=== PATIENT | male | born 1935 | race African-American/Black ===

== ENCOUNTER 2021-06-09 17:53 | Inpatient (IN) | payer MEDICARE ==
[~2021-06-09] VITALS: Ht 180.3 cm; Wt 95.7 kg
[~2021-06-09 17:53] MED LIST: CLIN-116 MT
[2021-06-09] MEDS ORDERED: SODIUM CHLORIDE 0.9% 1000ML BAG (SEPSIS BOLUS) IV ONE (18:30)
[2021-06-09] MEDS ORDERED: PIPERACILLIN/TAZ 3.375G PREMIX 50 ML IV ONE (18:30)
[2021-06-09] MEDS ORDERED: VANCOMYCIN 1 G PREMIX 200 ML IV ONE (18:30)
[2021-06-09 18:36] LABS: HEMATOCRIT. 25.7 % (42.0-52.0); HEMOGLOBIN. 8.1 g/dL (14.0-18.0); MEAN CORPUSCULAR HEMOGLOBIN 28.9 pg (28.0-32.0); MEAN CORPUSCULAR VOLUME 91.2 fL (80.0-94.0); MEAN PLATELET VOLUME 7.8 fl (7.4-10.4); PLATELET 292 x1000/uL (130-400); RED BLOOD CELL COUNT 2.82 mill/uL (4.7-6.1); RED CELL DISTRIBUTION WIDTH 15.9 % (11.6-14.6)
[2021-06-09 18:38] LABS: CHLORIDE 112 mEq/L (98-107)
[2021-06-09 19:55] LABS: PLATELET ESTIMATE NORMAL
[2021-06-09] MEDS ORDERED: NOREPINEPHRINE 8MG/250ML PMX 250 ML IV ONE (20:15)
[2021-06-09] MEDS ORDERED: DIGOXIN 500MCG/2ML AMP IV SCH (22:00)
[2021-06-09 23:39] LABS: BG BASE EXCESS -6.7 mmol/L (-2.0-2.0); BG CARBOXYHEMOGLOBIN 0.3 % (0.5-1.5); BG DEOXYHEMOGLOBIN 6.2 % (0.0-5.0); BG FRACTION INSPIRED OXYGEN 21; BG HCO3 ACT 17.6 mmol/L (22.0-26.0); BG METHEMOGLOBIN 0.2 % (0.0-1.5); BG OXYGEN SATURATION 93.8 % (92.0-98.5); BG OXYHEMOGLOBIN 93.3 % (94.0-97.0); BG PCO2 30.6 mmHg (35.0-45.0); BG PH 7.377 (7.350-7.450); BG PO2 75.1 mmHg (75.0-100.0); BG SAMPLE SITE RIGHT BRACHIAL; BG TOTAL HEMOGLOBIN 9.2 g/dL (12.0-18.0); BG VENT MODE ROOM AIR
[2021-06-10] MEDS ORDERED: DIGOXIN 500MCG/2ML AMP IV SCH (00:15)
[2021-06-10] MEDS ORDERED: SODIUM BICARBONATE 50 MEQ in DEXTROSE 5% WATER 1,000 ML IV SCH ×2 (01:00→08:00)
[2021-06-10] MEDS: HYDROCORTISONE SOD SUCCINATE 100 MG/2 ML VIAL IV SCH ×3 (01:02→21:17)
[2021-06-10] MEDS: MEROPENEM 500 MG in SODIUM CHLORIDE 0.9% 50 ML IV SCH ×3 (01:04→21:00)
[2021-06-10] MEDS: PANTOPRAZOLE SODIUM 40 MG/VIAL IV SCH ×2 (03:05→09:35)
[2021-06-10] MEDS ORDERED: NOREPINEPHRINE 8MG/250ML PMX 250 ML IV SCH (03:30)
[2021-06-10] MEDS ORDERED: DILTIAZEM HCL 5MG/ML 5ML VIAL IV SCH (05:00)
[2021-06-10] MEDS ORDERED: AMIODARONE HCL 150 MG in DEXT 5% WATER 100 ML IV SCH (05:00)
[2021-06-10] MEDS ORDERED: AMIODARONE HCL 900 MG in DEXT 5% WATER 500 ML IV PRN (05:00)
[2021-06-10] MEDS ORDERED: DOCUSATE SODIUM 100MG CAPSULE PO PRN (11:00)
[2021-06-10] MEDS ORDERED: MAGNESIUM/ALUMINUM HYDROXIDE/SIMETHICONE 30ML UDC PO PRN (11:00)
[2021-06-10] MEDS ORDERED: NA PHOS,M-B/NA PHOS,DI-BA ENEMA 118ML PR PRN (11:00)
[2021-06-10] MEDS ORDERED: ACETAMINOPHEN 650MG SUPP PR PRN (11:00)
[2021-06-10] MEDS ORDERED: DIPHENHYDRAMINE 50MG/ML VIAL IV PRN (11:00)
[2021-06-10] MEDS ORDERED: GUAIFENESIN 200MG/10ML SUGAR FREE UDC PO PRN (11:00)
[2021-06-10] MEDS ORDERED: ONDANSETRON HCL 4MG/2ML INJ IV PRN (11:00)
[2021-06-10] MEDS ORDERED: IPRATROPIUM/ALBUTEROL 0.5-3(2.5)MG/3ML NEB NEB PRN (11:00)
[2021-06-10] MEDS ORDERED: ACETAMINOPHEN 325MG TABLET PO PRN (11:00)
[2021-06-10] MEDS ORDERED: NALOXONE HCL 0.4MG/ML VIAL IV PRN (11:00)
[2021-06-10] MEDS ORDERED: MORPHINE SULFATE 2 MG/ML CPJ (NOT FOR IM USE) IV PRN (11:00)
[2021-06-10 11:16] LABS: HEMATOCRIT. 26.4 % (42.0-52.0); HEMOGLOBIN. 8.6 g/dL (14.0-18.0); MEAN CORPUSCULAR HEMOGLOBIN 28.6 pg (28.0-32.0); MEAN CORPUSCULAR VOLUME 88.4 fL (80.0-94.0); PLATELET 259 x1000/uL (130-400); RED BLOOD CELL COUNT 2.99 mill/uL (4.7-6.1); RED CELL DISTRIBUTION WIDTH 16.2 % (11.6-14.6)
[2021-06-10] MEDS: LORAZEPAM 2MG/ML CPJ IV PRN (11:20)
[2021-06-10] MEDS ORDERED: VANCOMYCIN 1 G PREMIX 200 ML IV NR (11:30)
[2021-06-10 12:13] LABS: CHLORIDE 113 mEq/L (98-107)
[2021-06-10 12:50] LABS: PLATELET ESTIMATE NORMAL
[2021-06-10 13:54] LABS: BG BASE EXCESS -4.5 mmol/L (-2.0-2.0); BG DEOXYHEMOGLOBIN 1.7 % (0.0-5.0); BG FRACTION INSPIRED OXYGEN 24; BG HCO3 ACT 19.5 mmol/L (22.0-26.0); BG METHEMOGLOBIN 0.5 % (0.0-1.5); BG OXYGEN SATURATION 98.3 % (92.0-98.5); BG OXYHEMOGLOBIN 97.8 % (94.0-97.0); BG PCO2 31.5 mmHg (35.0-45.0); BG PH 7.409 (7.350-7.450); BG PO2 133.7 mmHg (75.0-100.0); BG SAMPLE SITE RIGHT BRACHIAL; BG TOTAL HEMOGLOBIN 9.1 g/dL (12.0-18.0); BG VENT MODE NASAL CANNULA
[2021-06-10] MEDS ORDERED: NOREPINEPHRINE 8MG/250ML PMX 250 ML IV PRN (15:00)
[2021-06-10 15:03] LABS: INR 1.8; PROTHROMBIN TIME 18.1 sec (9.6-11.0)
[2021-06-10 15:10] LABS: CREATINE KINASE MB FRACTION 17.4 ng/mL (0.5-3.6)
[2021-06-10] MEDS ORDERED: SODIUM CHLORIDE 0.9% 500 ML IV ONE (15:15)
[2021-06-10] MEDS ORDERED: DOPAMINE 400MG/250ML PREMIX 250 ML IV PRN (15:15)
[2021-06-10] MEDS: NOREPINEPHRINE 8 MG in DEXTROSE 5% WATER 250 ML IV PRN ×2 (15:50→23:48)
[2021-06-10] MEDS: ASPIRIN 81MG TABLET PO SCH (18:35)
[2021-06-10 18:42] LABS: CLARITY URINE TURBID (CLEAR); COLOR URINE DARK YELLOW (YELLOW); KETONES URINE NEGATIVE (NEGATIVE); LEUKOCYTE ESTERASE URINE 3+ (NEGATIVE); NITRITE URINE NEGATIVE (NEGATIVE); OCCULT BLOOD URINE 2+ (NEGATIVE); PH URINE 8.5 (4.5-8.0); PROTEIN URINE 3+ (NEGATIVE); SPECIFIC GRAVITY URINE 1.013 (1.005-1.030)
[2021-06-10 23:51] LABS: CREATINE KINASE MB FRACTION 18.1 ng/mL (0.5-3.6)
[2021-06-11 06:07] LABS: CHLORIDE 111 mEq/L (98-107)
[2021-06-11 06:10] LABS: HEMATOCRIT. 27.7 % (42.0-52.0); HEMOGLOBIN. 9.1 g/dL (14.0-18.0); MEAN CORPUSCULAR HEMOGLOBIN 28.8 pg (28.0-32.0); MEAN PLATELET VOLUME 8.1 fl (7.4-10.4); PLATELET 189 x1000/uL (130-400); RED BLOOD CELL COUNT 3.15 mill/uL (4.7-6.1); RED CELL DISTRIBUTION WIDTH 16.3 % (11.6-14.6)
[2021-06-11 06:17] LABS: T4 FREE 1.07 ng/dL (0.76-1.46)
[2021-06-11] MEDS: MEROPENEM 500 MG in SODIUM CHLORIDE 0.9% 50 ML IV SCH ×2 (08:49→22:51)
[2021-06-11] MEDS: HYDROCORTISONE SOD SUCCINATE 100 MG/2 ML VIAL IV SCH ×2 (09:04→22:06)
[2021-06-11] MEDS: ASPIRIN 81MG TABLET PO SCH (09:04)
[2021-06-11] MEDS: PANTOPRAZOLE SODIUM 40 MG/VIAL IV SCH (09:50)
[2021-06-11] MEDS ORDERED: VANCOMYCIN 750 MG PREMIX 150 ML IV SCH (10:00)
[2021-06-11] MEDS ORDERED: MIDODRINE HCL 5MG TABLET PO NR (12:30)
[2021-06-11] MEDS ORDERED: MIDODRINE HCL 5MG TABLET PO SCH (13:00)
[2021-06-11] MEDS: NOREPINEPHRINE 8 MG in DEXTROSE 5% WATER 250 ML IV PRN (13:03)
[2021-06-11 13:57] LABS: PLATELET ESTIMATE NORMAL
[2021-06-11] MEDS: SODIUM CHLORIDE 0.45% 1,000 ML IV SCH (15:59)
[2021-06-11 16:51] LABS: HEPATITIS B SURFACE ANTIGEN NEGATIVE
[2021-06-11] MEDS: MIDODRINE HCL 5MG TABLET PO SCH (17:00)
[2021-06-11 18:31] VITALS: BP 116/50
[2021-06-11 19:30] VITALS: BP 95/61
[2021-06-11 20:00] VITALS: BP 119/64
[2021-06-11] MEDS ORDERED: METOPROLOL TARTRATE 25MG TABLET PO SCH (21:00)
[2021-06-11 22:00] VITALS: BP 114/73
[2021-06-11] MEDS: HYDROCODONE/ACETAMINOPHEN 5/325MG TABLET PO PRN (23:36)
[2021-06-12] VITALS (10 sets, daily range): BP systolic 99–132; BP diastolic 47–94
[2021-06-12] MEDS: SODIUM CHLORIDE 0.45% 1,000 ML IV SCH ×3 (02:48→23:56)
[2021-06-12 06:51] LABS: HEMATOCRIT. 24.8 % (42.0-52.0); HEMOGLOBIN. 8.2 g/dL (14.0-18.0); MEAN CORPUSCULAR HEMOGLOBIN 28.8 pg (28.0-32.0); MEAN CORPUSCULAR VOLUME 86.9 fL (80.0-94.0); MEAN PLATELET VOLUME 8.1 fl (7.4-10.4); PLATELET 146 x1000/uL (130-400); RED BLOOD CELL COUNT 2.85 mill/uL (4.7-6.1)
[2021-06-12 07:06] LABS: CHLORIDE 109 mEq/L (98-107)
[2021-06-12] MEDS: HYDROCORTISONE SOD SUCCINATE 100 MG/2 ML VIAL IV SCH (08:53)
[2021-06-12] MEDS: MEROPENEM 500 MG in SODIUM CHLORIDE 0.9% 50 ML IV SCH ×2 (08:53→20:39)
[2021-06-12] MEDS: PANTOPRAZOLE SODIUM 40 MG/VIAL IV SCH (08:54)
[2021-06-12] MEDS: ASPIRIN 81MG TABLET PO SCH ×2 (08:54→09:00)
[2021-06-12] MEDS: MIDODRINE HCL 5MG TABLET PO SCH ×3 (08:54→17:40)
[2021-06-12] MEDS ORDERED: VANCOMYCIN 750 MG PREMIX 150 ML IV SCH (09:00)
[2021-06-12] MEDS ORDERED: DILTIAZEM HCL 30MG TABLET PO SCH (12:00)
[2021-06-12] MEDS ORDERED: DILTIAZEM HCL 60MG TABLET PO SCH (12:00)
[2021-06-12 17:22] LABS: PLATELET ESTIMATE NORMAL
[2021-06-12] MEDS: AMIODARONE HCL 200 MG TABLET PO SCH (20:39)
[2021-06-13] VITALS (9 sets, daily range): BP systolic 103–131; BP diastolic 39–66
[2021-06-13 06:53] LABS: CHLORIDE 109 mEq/L (98-107)
[2021-06-13 06:54] LABS: HEMATOCRIT. 25.5 % (42.0-52.0); HEMOGLOBIN. 8.5 g/dL (14.0-18.0); MEAN CORPUSCULAR HEMOGLOBIN 28.8 pg (28.0-32.0); MEAN PLATELET VOLUME 8.1 fl (7.4-10.4); PLATELET 151 x1000/uL (130-400); RED BLOOD CELL COUNT 2.94 mill/uL (4.7-6.1); RED CELL DISTRIBUTION WIDTH 16.2 % (11.6-14.6)
[2021-06-13] MEDS: SODIUM CHLORIDE 0.45% 1,000 ML IV SCH ×2 (08:03→16:18)
[2021-06-13] MEDS: MEROPENEM 500 MG in SODIUM CHLORIDE 0.9% 50 ML IV SCH (08:41)
[2021-06-13] MEDS: FAMOTIDINE 20MG TABLET PO SCH (08:41)
[2021-06-13] MEDS: AMIODARONE HCL 200 MG TABLET PO SCH ×2 (08:41→20:36)
[2021-06-13] MEDS: HYDROCORTISONE SOD SUCCINATE 100 MG/2 ML VIAL IV SCH (08:42)
[2021-06-13] MEDS: MIDODRINE HCL 5MG TABLET PO SCH (08:54)
[2021-06-13 14:38] LABS: PLATELET ESTIMATE NORMAL
[2021-06-13] MEDS: MEROPENEM 1000MG in NORMAL SALINE 100ML IV SCH (16:18)
[2021-06-13] MEDS: VANCOMYCIN 1250MG in DEXTROSE 5% WATER 250ML IV SCH (19:48)
[2021-06-14] VITALS: BP 117/55
[2021-06-14] MEDS: LORAZEPAM 2MG/ML CPJ IV PRN ×2 (00:15→16:18)
[2021-06-14] MEDS: SODIUM CHLORIDE 0.45% 1,000 ML IV SCH ×2 (03:37→13:55)
[2021-06-14 04:00] VITALS: BP 122/64
[2021-06-14] MEDS: MEROPENEM 1000MG in NORMAL SALINE 100ML IV SCH ×2 (05:38→17:21)
[2021-06-14 08:00] VITALS: BP 125/70
[2021-06-14] MEDS: AMIODARONE HCL 200 MG TABLET PO SCH ×2 (08:25→20:30)
[2021-06-14] MEDS: HYDROCORTISONE SOD SUCCINATE 100 MG/2 ML VIAL IV SCH (08:25)
[2021-06-14] MEDS: FAMOTIDINE 20MG TABLET PO SCH (08:25)
[2021-06-14] MEDS: ASPIRIN 81MG TABLET PO SCH (08:25)
[2021-06-14 08:39] LABS: HEMATOCRIT. 26.7 % (42.0-52.0); HEMOGLOBIN. 8.6 g/dL (14.0-18.0); MEAN CORPUSCULAR HEMOGLOBIN 27.9 pg (28.0-32.0); MEAN CORPUSCULAR VOLUME 86.9 fL (80.0-94.0); MEAN PLATELET VOLUME 7.8 fl (7.4-10.4); PLATELET 164 x1000/uL (130-400); RED BLOOD CELL COUNT 3.07 mill/uL (4.7-6.1); RED CELL DISTRIBUTION WIDTH 16.5 % (11.6-14.6)
[2021-06-14 08:52] LABS: CHLORIDE 111 mEq/L (98-107)
[2021-06-14 10:25] LABS: PLATELET ESTIMATE NORMAL
[2021-06-14 12:00] VITALS: BP 141/70
[2021-06-14] MEDS ORDERED: POTASSIUM CHLORIDE 20MEQ/PACKET PO NR (13:30)
[2021-06-14] MEDS ORDERED: POTASSIUM CHLORIDE 20MEQ TABLET SR PO ONE (13:30)
[2021-06-14 16:00] VITALS: BP 141/65
[2021-06-14 20:00] VITALS: BP 128/75
[2021-06-14] MEDS: HYDROCODONE/ACETAMINOPHEN 5/325MG TABLET PO PRN (23:29)
[2021-06-15] VITALS: BP 150/65
[2021-06-15] MEDS: SODIUM CHLORIDE 0.45% 1,000 ML IV SCH ×3 (00:03→19:45)
[2021-06-15 04:00] VITALS: BP 133/55
[2021-06-15] MEDS: LORAZEPAM 2MG/ML CPJ IV PRN (04:05)
[2021-06-15 08:00] VITALS: BP 145/113
[2021-06-15] MEDS: ASPIRIN 81MG TABLET PO SCH (08:18)
[2021-06-15] MEDS: HYDROCORTISONE SOD SUCCINATE 100 MG/2 ML VIAL IV SCH (08:18)
[2021-06-15] MEDS: VANCOMYCIN 1250MG in DEXTROSE 5% WATER 250ML IV SCH (08:18)
[2021-06-15] MEDS: AMIODARONE HCL 200 MG TABLET PO SCH ×2 (08:18→21:00)
[2021-06-15] MEDS: FAMOTIDINE 20MG TABLET PO SCH (08:18)
[2021-06-15] MEDS: MULTIVITAMINS,THER W-MINERALS TABLET PO SCH (08:18)
[2021-06-15 12:00] VITALS: BP 140/88
[2021-06-15 16:00] VITALS: BP 119/56
[2021-06-15] MEDS: RISPERIDONE 1MG TABLET PO SCH (17:35)
[2021-06-15 20:00] VITALS: BP 124/48
[2021-06-15 20:06] LABS: VITAMIN B12 SERUM 1611 pg/mL (211-911)
[2021-06-16] VITALS: BP 129/46
[2021-06-16 04:00] VITALS: BP 129/53
[2021-06-16] MEDS: SODIUM CHLORIDE 0.45% 1,000 ML IV SCH ×3 (05:21→21:31)
[2021-06-16 07:18] LABS: HEMATOCRIT. 23.4 % (42.0-52.0); HEMOGLOBIN. 7.7 g/dL (14.0-18.0); MEAN CORPUSCULAR HEMOGLOBIN 28.7 pg (28.0-32.0); MEAN CORPUSCULAR VOLUME 87.4 fL (80.0-94.0); MEAN PLATELET VOLUME 8.1 fl (7.4-10.4); PLATELET 209 x1000/uL (130-400); RED BLOOD CELL COUNT 2.68 mill/uL (4.7-6.1); RED CELL DISTRIBUTION WIDTH 16.3 % (11.6-14.6)
[2021-06-16 08:00] VITALS: BP 148/65
[2021-06-16] MEDS: AMIODARONE HCL 200 MG TABLET PO SCH (09:50)
[2021-06-16] MEDS: RISPERIDONE 1MG TABLET PO SCH (10:00)
[2021-06-16] MEDS: MULTIVITAMINS,THER W-MINERALS TABLET PO SCH (10:00)
[2021-06-16] MEDS: ASPIRIN 81MG TABLET PO SCH (10:00)
[2021-06-16] MEDS: HYDROCORTISONE SOD SUCCINATE 100 MG/2 ML VIAL IV SCH (10:00)
[2021-06-16] MEDS: FAMOTIDINE 20MG TABLET PO SCH (10:00)
[2021-06-16 12:00] VITALS: BP 131/57
[2021-06-16] MEDS ORDERED: CEFTRIAXONE 1 G PREMIX 50 ML IV SCH (15:00)
[2021-06-16 16:00] VITALS: BP 129/58
[2021-06-16 16:06] LABS: HEMATOCRIT 28.6 % (42.0-52.0); HEMOGLOBIN 9.1 g/dL (14.0-18.0)
[2021-06-16 16:56] LABS: PLATELET ESTIMATE NORMAL
[2021-06-16] MEDS: CEFTRIAXONE 1,000 MG in DEXTROSE 5% WATER 50 ML IV SCH (17:17)
[2021-06-16 20:00] VITALS: BP 124/50
[2021-06-16] MEDS ORDERED: AMIODARONE HCL 200 MG TABLET PO SCH (21:00)
[2021-06-17] VITALS: BP 131/58
[2021-06-17 04:00] VITALS: BP 132/67
[2021-06-17 05:50] LABS: CHLORIDE 113 mEq/L (98-107)
[2021-06-17 06:34] LABS: BASOPHILS % 0.1 % (0.0-2.0); EOSINOPHILS % 0.9 % (0.0-5.0); HEMOGLOBIN. 8.6 g/dL (14.0-18.0); LYMPHOCYTES % 7.7 % (20.0-50.0); MEAN CORPUSCULAR HEMOGLOBIN 29.5 pg (28.0-32.0); MEAN CORPUSCULAR VOLUME 89.5 fL (80.0-94.0); MEAN PLATELET VOLUME 8.3 fl (7.4-10.4); MONOCYTES % 5.8 % (2.0-8.0); NEUTROPHILS % 85.5 % (40.0-76.0); PLATELET 225 x1000/uL (130-400); RED CELL DISTRIBUTION WIDTH 16.2 % (11.6-14.6)
[2021-06-17 08:00] VITALS: BP 155/72
[2021-06-17] MEDS: AMIODARONE HCL 200 MG TABLET PO SCH ×2 (09:00→10:20)
[2021-06-17] MEDS: HYDROCORTISONE SOD SUCCINATE 100 MG/2 ML VIAL IV SCH (09:59)
[2021-06-17] MEDS: FAMOTIDINE 20MG TABLET PO SCH (09:59)
[2021-06-17] MEDS: MULTIVITAMINS,THER W-MINERALS TABLET PO SCH (10:00)
[2021-06-17] MEDS: RISPERIDONE 1MG TABLET PO SCH (10:00)
[2021-06-17 12:00] VITALS: BP 141/72
[2021-06-17] MEDS: SODIUM CHLORIDE 0.45% 1,000 ML IV SCH ×2 (12:54→22:28)
[2021-06-17] MEDS ORDERED: POTASSIUM CHLORIDE 20MEQ TABLET SR PO NR (14:00)
[2021-06-17 16:00] VITALS: BP 154/61
[2021-06-17] MEDS: CEFTRIAXONE 1,000 MG in DEXTROSE 5% WATER 50 ML IV SCH (16:44)
[2021-06-17 20:00] VITALS: BP 145/64
[2021-06-18] VITALS: BP 152/54
[2021-06-18 04:00] VITALS: BP 152/74
[2021-06-18 06:37] LABS: BASOPHILS % 0.1 % (0.0-2.0); EOSINOPHILS % 0.8 % (0.0-5.0); HEMATOCRIT. 22.8 % (42.0-52.0); HEMOGLOBIN. 7.6 g/dL (14.0-18.0); LYMPHOCYTES % 7.9 % (20.0-50.0); MEAN CORPUSCULAR HEMOGLOBIN 29.1 pg (28.0-32.0); MEAN CORPUSCULAR VOLUME 87.2 fL (80.0-94.0); MEAN PLATELET VOLUME 8.5 fl (7.4-10.4); MONOCYTES % 6.1 % (2.0-8.0); NEUTROPHILS % 85.1 % (40.0-76.0); PLATELET 260 x1000/uL (130-400); RED BLOOD CELL COUNT 2.61 mill/uL (4.7-6.1); RED CELL DISTRIBUTION WIDTH 16.5 % (11.6-14.6)
[2021-06-18 06:47] LABS: CHLORIDE 113 mEq/L (98-107)
[2021-06-18 08:00] VITALS: BP 155/64
[2021-06-18] MEDS: SODIUM CHLORIDE 0.45% 1,000 ML IV SCH ×2 (10:10→18:18)
[2021-06-18] MEDS: HYDROCORTISONE SOD SUCCINATE 100 MG/2 ML VIAL IV SCH (10:10)
[2021-06-18] MEDS: MULTIVITAMINS,THER W-MINERALS TABLET PO SCH (10:11)
[2021-06-18] MEDS: RISPERIDONE 1MG TABLET PO SCH (10:11)
[2021-06-18] MEDS: FAMOTIDINE 20MG TABLET PO SCH (10:11)
[2021-06-18 12:00] VITALS: BP 153/66
[2021-06-18] MEDS ORDERED: AMIO100T4 PO (12:22)
[2021-06-18] MEDS ORDERED: RISP1 MT (12:22)
[2021-06-18 16:00] VITALS: BP 152/61
[2021-06-18 16:30] LABS: HEMATOCRIT 27.4 % (42.0-52.0); HEMOGLOBIN 8.7 g/dL (14.0-18.0)
[2021-06-18] MEDS: CEFTRIAXONE 1,000 MG in DEXTROSE 5% WATER 50 ML IV SCH (17:00)
[2021-06-18] MEDS ORDERED: HYDROCODONE/ACETAMINOPHEN 5/325MG TABLET PO PRN (17:45)
[2021-06-18] MEDS ORDERED: NALOXONE HCL 0.4MG/ML VIAL IV PRN (18:00)
[2021-06-18 20:00] VITALS: BP 153/99
[2021-06-18] MEDS: CLONIDINE 0.1MG TABLET PO PRN (22:02)
[2021-06-19] VITALS: BP 160/70
[2021-06-19 04:00] VITALS: BP 141/76
[2021-06-19] MEDS: LORAZEPAM 2MG/ML CPJ IV PRN ×2 (04:57→17:26)
[2021-06-19] MEDS: SODIUM CHLORIDE 0.45% 1,000 ML IV SCH ×2 (05:22→13:45)
[2021-06-19 08:00] VITALS: BP 178/74
[2021-06-19] MEDS ORDERED: AMLODIPINE 5MG TABLET PO SCH (09:00)
[2021-06-19] MEDS: FAMOTIDINE 20MG TABLET PO SCH (09:23)
[2021-06-19] MEDS: AMIODARONE HCL 200 MG TABLET PO SCH (09:23)
[2021-06-19] MEDS: RISPERIDONE 1MG TABLET PO SCH (09:23)
[2021-06-19] MEDS: MULTIVITAMINS,THER W-MINERALS TABLET PO SCH (09:23)
[2021-06-19 10:19] LABS: HEMATOCRIT. 23.6 % (42.0-52.0); HEMOGLOBIN. 7.8 g/dL (14.0-18.0); MEAN CORPUSCULAR HEMOGLOBIN 28.5 pg (28.0-32.0); MEAN CORPUSCULAR VOLUME 86.9 fL (80.0-94.0); MEAN PLATELET VOLUME 8.1 fl (7.4-10.4); PLATELET 130 x1000/uL (130-400); RED BLOOD CELL COUNT 2.72 mill/uL (4.7-6.1); RED CELL DISTRIBUTION WIDTH 16.6 % (11.6-14.6)
[2021-06-19 10:28] LABS: CHLORIDE 113 mEq/L (98-107)
[2021-06-19] MEDS ORDERED: POTASSIUM CHLORIDE 20MEQ TABLET SR PO NR (11:07)
[2021-06-19 12:00] VITALS: BP 184/89
[2021-06-19 12:17] LABS: PLATELET ESTIMATE NORMAL
[2021-06-19 16:00] VITALS: BP 173/74
[2021-06-19 17:04] VITALS: BP 154/74
[2021-06-19] MEDS: CEFTRIAXONE 1,000 MG in DEXTROSE 5% WATER 50 ML IV SCH (17:26)
[2021-06-19] MEDS: CLONIDINE 0.1MG TABLET PO PRN (20:20)
== END 2021-06-19 20:35 | disposition home health service (06) | DRG 871 ==
LOC: ER 17:53 → MICUSO 20:35 → EDBEDREQTM 20:43 → EDBEDREQSVC 20:43 → EDBEDREQ 20:43 → 5EST 06-11 17:15 → 6EST 06-18 14:44
PROVIDERS: ADMIT Internal Medicine; ATTEND Internal Medicine
PROC: 02HV33Z Insertion of Infusion Device into Superior Vena Cava, Percutaneous Approach (ICD-10-PCS; principal; 2021-06-09)
PROC: B548ZZA Ultrasonography of Superior Vena Cava, Guidance (ICD-10-PCS; 2021-06-09)
PROC: B54MZZA Ultrasonography of Right Upper Extremity Veins, Guidance (ICD-10-PCS; 2021-06-12)
PROC: 05HY33Z Insertion of Infusion Device into Upper Vein, Percutaneous Approach (ICD-10-PCS; 2021-06-12)
DX: A41.51 Sepsis due to Escherichia coli [E. coli] (principal); R65.21 Severe sepsis with septic shock; G92.8 Other toxic encephalopathy; I21.4 Non-ST elevation (NSTEMI) myocardial infarction; N17.9 Acute kidney failure, unspecified; I42.9 Cardiomyopathy, unspecified; N13.6 Pyonephrosis; E46 Unspecified protein-calorie malnutrition; E87.2 Acidosis; B96.4 Proteus (mirabilis) (morganii) as the cause of diseases classified elsewhere; D64.9 Anemia, unspecified; F03.90 Unspecified dementia, unspecified severity, without behavioral disturbance, psychotic disturbance, mood disturbance, and anxiety; I10 Essential (primary) hypertension; I35.0 Nonrheumatic aortic (valve) stenosis; I45.10 Unspecified right bundle-branch block; I48.0 Paroxysmal atrial fibrillation; K76.0 Fatty (change of) liver, not elsewhere classified; I25.10 Atherosclerotic heart disease of native coronary artery without angina pectoris; T83.011A Breakdown (mechanical) of indwelling urethral catheter, initial encounter; S31.501A Unspecified open wound of unspecified external genital organs, male, initial encounter; X58.XXXA Exposure to other specified factors, initial encounter; Y83.8 Other surgical procedures as the cause of abnormal reaction of the patient, or of later complication, without mention of misadventure at the time of the procedure; N40.0 Benign prostatic hyperplasia without lower urinary tract symptoms; E87.6 Hypokalemia; Z20.822 Contact with and (suspected) exposure to COVID-19; Z85.46 Personal history of malignant neoplasm of prostate; Z87.891 Personal history of nicotine dependence; Z88.8 Allergy status to other drugs, medicaments and biological substances; Z79.2 Long term (current) use of antibiotics; Z79.899 Other long term (current) drug therapy; Y92.89 Other specified places as the place of occurrence of the external cause; Y93.89 Activity, other specified; Y99.8 Other external cause status; Z90.79 Acquired absence of other genital organ(s); Z78.1 Physical restraint status; Z68.29 Body mass index [BMI] 29.0-29.9, adult
CPT/HCPCS: 36415; 36600; 71045; 74176; 76700; 76937; 80048; 80053; 80061; 80076; 80202; 81003; 82140; 82248; 82375; 82533; 82550; 82553; 82607; 82805; 82962; 83605; 83735; 84153; 84439; 84443; 84484; 85014; 85018; 85025; 86705; 86709; 86803; 87077; 87186; 87340; 87426; 92610; 93005; 93306; 93970; 97162; 99291; C1725; C9113; J0282; J0696; J1160; J1200; J1720; J2060; J2185; J2270; J2405; J2543; J3370; J3490; J7030; J7060; J7070; U0003; U0005; A4315; G0103